=== PATIENT | male | born 1985 | race Caucasian/White ===

== ENCOUNTER 2021-05-14 10:52 | Emergency (ER) | payer OTHER ==
[2021-05-14] MEDS ORDERED: ACETAMINOPHEN 325 MG TABLET (FP) PO ONE (11:02)
[2021-05-14] MEDS ORDERED: ACETAMINOPHEN 325 MG TABLET (FP) ONE (11:03)
[2021-05-14 11:13] VITALS: BP 128/80; PULSE 73; TEMP 98.3; BMI 29.5
== END 2021-05-14 11:34 | disposition home or self-care (01) ==
LOC: FER 10:52
DX: S09.90XA Unspecified injury of head, initial encounter (principal); W50.0XXA Accidental hit or strike by another person, initial encounter; Y93.66 Activity, soccer
CPT/HCPCS: 99283-25

== ENCOUNTER 2021-05-23 09:24 | Emergency (ER) | payer OTHER ==
[2021-05-23 09:29] VITALS: BP 135/72; PULSE 63; TEMP 98.7; BMI 29.5
== END 2021-05-23 10:05 | disposition home or self-care (01) ==
LOC: FER 09:24
DX: S01.01XA Laceration without foreign body of scalp, initial encounter (principal); Y93.66 Activity, soccer; Z48.02 Encounter for removal of sutures
CPT/HCPCS: 99281-25